=== PATIENT | female | born 1940 | race Caucasian/White ===

== ENCOUNTER → 2019-06-05 | Outpatient (CLI) | payer MEDICARE, OTHER ==
--- NOTE | 2019-06-05 16:39 | RAD ---
Indication osteopenia TECHNIQUE: DEXA scan COMPARISON: None FINDINGS: The bone mineral density in the left femoral neck measures 0.666 g/sq cm with T score of -2.3. The bone mineral density in the lumbar spine measures 1.318 g/sq cm with T score of 1.2. IMPRESSION: Osteopenia in the left femoral neck. Normal bone mineral density in the lumbar spine. Please note that degenerative changes in the lumbar spine can falsely elevate bone mineral density values. Electronically signed by: Jose Antonio Rios DO (06/05/2019 4:36 PM) [facility]
--- NOTE | 2019-06-14 14:36 | RAD ---
DATE: 06/05/2019 EXAM: MAMMO SERENA SCREEN RT HISTORY: Routine screening evaluation COMPARISON: 05/21/2010 This study was interpreted with the benefit of Computerized Aided Detection (CAD). FINDINGS: Breast Density: SCATTERED The breast parenchyma shows scattered fibroglandular densities. Breast parenchyma level B. Benign calcifications are present. The parenchymal pattern appears stable. No suspicious masses, microcalcifications or architectural distortion is present to suggest malignancy in either breast. The visualized axillae are unremarkable. IMPRESSION: No mammographic evidence of malignancy BI-RADS CATEGORY: 2 BENIGN FINDING(S) RECOMMENDED FOLLOW-UP: 12M 12 MONTH FOLLOW-UP PQRS compliance statement: Patient information was entered into a reminder system with a target due date for the next mammogram. Mammography is a sensitive method for finding small breast cancers, but it does not detect them all and is not a substitute for careful clinical examination. A negative mammogram does not negate a clinically suspicious finding and should not result in delay in biopsying a clinically suspicious abnormality. "Our facility is accredited by the [employer] Mammography Program."
== END | disposition home or self-care (01) ==
LOC: DXRAD 12:59
PROVIDERS: ATTEND Registered Nurse
DX: Z12.31 Encounter for screening mammogram for malignant neoplasm of breast (principal); N64.89 Other specified disorders of breast; M85.88 Other specified disorders of bone density and structure, other site; Z85.3 Personal history of malignant neoplasm of breast
CPT/HCPCS: 77063; 77067; 77080